=== PATIENT | female | born 1980 | race Caucasian/White ===

== ENCOUNTER 2022-07-18 14:48 | Emergency (ER) | payer MEDICAID ==
[~2022-07-18] VITALS: Ht 160.8 cm; Wt 74.2 kg
[2022-07-18 15:27] VITALS: BP 156/98
--- NOTE | 2022-07-18 15:37 | NUR ---
TENT 1.
--- NOTE | 2022-07-18 15:37 | NUR ---
Marci cash in [facility] - 07/18/22 at 1537 by [email or web address] [place]
[2022-07-18] MEDS ORDERED: NIRM1TAB PO (16:09)
[2022-07-18] MEDS ORDERED: ACET-10509 PO (16:09)
[2022-07-18 19:10] VITALS: BP 156/98
--- NOTE | 2022-07-18 19:10 | NUR ---
Patient discharged with v/s stable. Written and verbal after care instructions given and explained. Patient alert, oriented and verbalized understanding of instructions. Ambulatory with steady gait. All questions addressed prior to discharge. ID band removed. Patient advised to follow up with PMD. Rx of TYLENOL, EUA given. Patient educated on indication of medication including possible reaction and side effects. Opportunity to ask questions provided and answered.
== END 2022-07-18 19:10 | disposition home or self-care (01) ==
LOC: MED 14:48
DX: U07.1 COVID-19 (principal); I10 Essential (primary) hypertension; Z79.899 Other long term (current) drug therapy
CPT/HCPCS: 99283